=== PATIENT | male | born 1970 | race American Indian/Alaskan Native ===

== ENCOUNTER 2020-06-25 02:29 | Emergency (ER) | payer MEDICAID ==
[2020-06-25 02:37] VITALS: BP 136/69
[2020-06-25 04:21] LABS: Basophils # (Auto) 0.1 K/mm3 (0.0-0.1); Basophils % (Auto) 0.9 % (0.0-1.8); Eosinophils # (Auto) 0.1 K/mm3 (0.0-0.4); Eosinophils % (Auto) 0.7 % (0.0-4.3); Hematocrit 37.8 % (35.5-45.6); Hemoglobin 12.2 gm/dl (11.8-15.2); Lymphocytes # (Auto) 1.9 K/mm3 (1.2-5.4); Lymphocytes % (Auto) 19.1 % (13.4-35.0); Mean Corpuscular HGB Conc 32 % (32-34); Mean Corpuscular Volume 78 fl (84-94); Monocytes # (Auto) 0.6 K/mm3 (0.0-0.8); Monocytes % (Auto) 6.3 % (0.0-7.3); Platelet Count 231 K/mm3 (140-440); Red Blood Count 4.85 M/mm3 (3.65-5.03); Red Cell Distribution Width 15.4 % (13.2-15.2)
--- NOTE | 2020-06-25 04:40 | XRay Report ---
RIGHT SHOULDER 3 VIEWS INDICATION / CLINICAL INFORMATION: acute pain, no injury. COMPARISON: None available. FINDINGS: BONES/JOINT(S): No acute fracture or subluxation. Mild DJD in the AC joint and in the glenohumeral mariel int. SOFT TISSUES: No significant abnormality. ADDITIONAL FINDINGS: None. Signer Name: Shahbaz Stack MD Signed: 06/25/2020 4:36 AM Workstation Name: [id number]
--- NOTE | 2020-06-25 04:40 | XRay Report ---
CHEST 1 VIEW 06/25/2020 3:31 AM INDICATION / CLINICAL INFORMATION: Chest Pain. COMPARISON: 04/26/2018. FINDINGS: SUPPORT DEVICES: None. HEART / MEDIASTINUM: No significant abnormality. LUNGS / PLEURA: Stable mild linear scarring left lower lung. No pneumothorax. ADDITIONAL FINDINGS: No significant additional findings. IMPRESSION: 1. No acute findings. Signer Name: Shahbaz Stack MD Signed: 06/25/2020 4:36 AM Workstation Name: [id number]
[2020-06-25 04:48] LABS: Albumin 3.9 g/dL (3.9-5); Calcium 8.8 mg/dL (8.4-10.2)
--- NOTE | 2020-06-25 06:40 | Emergency Department Report ---
ED Upper Extremity Inj HPI - General Chief Complaint: Shoulder Injury Stated Complaint: PAIN IN NECK & ARM RT SIDE Time Seen by Provider: 06/25/20 06:11 Source: patient Mode of arrival: Wheelchair Limitations: Other - History of Present Illness Initial Comments: 50-year-old male, history of hypertension, COPD, diabetes, presents to ED with complaint of right neck pain radiating into the right shoulder x2 days. Patient denies any recent trauma, injury, or fall. Patient reports improvement of pain with abduction of the right arm. He denies any weakness or numbness. MD Complaint: Injury to:: right, shoulder -: days(s) (2) Other Injuries: none Improves With: other (heat therapy; abduction of right arm) Worsens With: other (rotating neck rightward) Context: other (unknown) Associated Symptoms: neck pain. denies: weakness, numbness, nausea/vomiting - Related Data Home Medications Medication Instructions Recorded Confirmed Last Taken Albuterol Mdi (or & Nicu Only) 2 puff IH QID PRN 08/20/13 03/12/20 03/05/20 [ProAir HFA Inhaler] Fluticasone Propionate [Flovent 1 puff IH BID 08/20/13 03/12/20 02/27/20 Diskus] Ibuprofen [Motrin 800 MG tab] 800 mg PO BID PRN 08/20/13 03/12/20 03/05/20 Insulin Glargine,Hum.rec.anlog 80 unit SQ QHS 08/20/13 03/11/20 Unknown [Lantus Solostar] Insulin Lispro [HumaLOG VIAL] See Protocol SQ PRN 08/20/13 03/12/20 03/10/20 AtorvaSTATin [Lipitor] 20 mg PO QHS 04/26/18 03/12/20 03/10/20 19:00 Furosemide [Lasix TAB] 40 mg PO QDAY 04/26/18 03/12/20 03/10/20 amLODIPine 5 mg PO DAILY 04/26/18 03/12/20 03/11/20 carvediloL [Carvedilol] 25 mg PO BID 04/26/18 03/12/20 03/11/20 lisinopriL [Zestril TAB] 40 mg PO QDAY 04/26/18 03/12/20 03/11/20 Insulin Glargine,Hum.rec.anlog 80 unit SQ QPM 03/11/20 03/11/20 Unknown [Basaglar Kwikpen U-100] Insulin Lispro [Admelog Solostar] 35 unit SQ TID 03/11/20 03/11/20 Unknown Previous Rx's Medication Instructions Recorded Last Taken Type methOCARBAMOL [Robaxin TAB] 500 mg PO Q8HR PRN #20 tablet 06/25/20 Unknown Rx Allergies Allergy/AdvReac Type Severity Reaction Status Date / Time No Known Allergies Allergy Verified 05/10/15 14:21 ED Review of Systems ROS: Stated complaint: PAIN IN NECK & ARM RT SIDE Other details as noted in HPI Comment: All other systems reviewed and negative Constitutional: denies: chills, fever Cardiovascular: denies: chest pain Gastrointestinal: denies: vomiting Musculoskeletal: as per HPI Neurological: denies: headache, weakness, numbness ED Past Medical Hx - Past Medical History Previous Medical History?: Yes Hx Hypertension: Yes Hx Heart Attack/AMI: No Hx Diabetes: Yes Hx Liver Disease: No Hx Renal Disease: No Hx Sickle Cell Disease: No Hx Arthritis: Yes Hx Seizures: No Hx Asthma: Yes Hx COPD: Yes Additional medical history: CHRONIC SINUS, Obesity - Surgical History Past Surgical History?: Yes Hx Pacemaker: No Hx Internal Defibrillator: No Additional Surgical History: sinus surgery - Social History Smoking Status: Former Smoker - Medications Home Medications: Home Medications Medication Instructions Recorded Confirmed Last Taken Type Albuterol Mdi (or & Nicu Only) 2 puff IH QID PRN 08/20/13 03/12/20 03/05/20 History [ProAir HFA Inhaler] Fluticasone Propionate [Flovent 1 puff IH BID 08/20/13 03/12/20 02/27/20 History Diskus] Ibuprofen [Motrin 800 MG tab] 800 mg PO BID PRN 08/20/13 03/12/20 03/05/20 History Insulin Glargine,Hum.rec.anlog 80 unit SQ QHS 08/20/13 03/11/20 Unknown History [Lantus Solostar] Insulin Lispro [HumaLOG VIAL] See Protocol SQ PRN 08/20/13 03/12/20 03/10/20 History AtorvaSTATin [Lipitor] 20 mg PO QHS 07/03/12/20 03/10/20 19:00 History Furosemide [Lasix TAB] 40 mg PO QDAY 04/26/18 03/12/20 03/10/20 History amLODIPine 5 mg PO DAILY 04/26/18 03/12/20 03/11/20 History carvediloL [Carvedilol] 25 mg PO BID 04/26/18 03/12/20 03/11/20 History lisinopriL [Zestril TAB] 40 mg PO QDAY 04/26/18 03/12/20 03/11/20 History Insulin Glargine,Hum.rec.anlog 80 unit SQ QPM 03/11/20 03/11/20 Unknown History [Basaglar Kwikpen U-100] Insulin Lispro [Admelog Solostar] 35 unit SQ TID 03/11/20 03/11/20 Unknown History methOCARBAMOL [Robaxin TAB] 500 mg PO Q8HR PRN #20 tablet 06/25/20 Unknown Rx ED Physical Exam - General Limitations: Other General appearance: alert, in no apparent distress, obese - Head Head exam: Present: atraumatic, normocephalic - Eye Eye exam: Present: normal appearance, EOMI - ENT ENT exam: Present: mucous membranes moist - Neck Neck exam: Present: normal inspection, tenderness (posterior right paraspinal), full ROM. Absent: meningismus - Respiratory Respiratory exam: Present: normal lung sounds bilaterally. Absent: respiratory distress - Cardiovascular Cardiovascular Exam: Present: regular rate, normal rhythm - GI/Abdominal GI/Abdominal exam: Present: soft. Absent: distended, tenderness - Extremities Exam Extremities exam: Present: pedal edema - Back Exam Back exam: Present: normal inspection - Neurological Exam Neurological exam: Present: alert, oriented X3. Absent: CN II-XII intact, motor sensory deficit - Psychiatric Psychiatric exam: Present: normal affect, normal mood - Skin Skin exam: Present: warm, dry, intact, normal color ED Course Vital Signs 06/25/20 02:36 Temperature 98.0 F Pulse Rate 69 Respiratory 18 Rate Blood Pressure 136/69 [Right] O2 Sat by Pulse 97 Oximetry ED Medical Decision Making - Lab Data Result diagrams: 06/25/20 04:00 06/25/20 04:00 - EKG Data -: EKG Interpreted by Me EKG shows normal: sinus rhythm, axis, intervals, QRS complexes, ST-T waves Rate: normal - EKG Data Interpretation: no acute changes - Radiology Data Radiology results: report reviewed, image reviewed - Medical Decision Making 50-year-old female presents to ED with what appears to be cervical radiculopathy. Chest x-ray or shoulder films are negative for any acute findings. Labs are drawn and show that patient has some renal insufficiency with very mild hyperkalemia of 5.3. Patient is currently on Lasix and states that his dose was recently increased from once a day to twice a day. This may be the cause of his renal insufficiency or it could be chronic. Patient will be given a dose of Kayexalate here in the ED. Patient states he is currently being seen by a relationship management lead, however patient does not remember the relationship management lead name, nor can he find her business card. Patient has been instructed to call his relationship management lead and make an appointment when he gets home. Also instructed to follow-up with his primary care physician. Return precautions given. Will discharge at this time. - Differential Diagnosis Cervical radiculopathy, arthropathy, fracture, muscle strain Critical care attestation.: If time is entered above; I have spent that time in minutes in the direct care of this critically ill patient, excluding procedure time. ED Disposition Clinical Impression: Acute cervical radiculopathy, Renal insufficiency, Hyperkalemia Disposition: DC-01 TO HOME OR SELFCARE Is pt being admited?: No Condition: Stable Instructions: Hyperkalemia (ED), Cervical Radiculopathy (ED), Impaired Kidney Function (ED) Additional Instructions: Your BUN and creatinine are 37 and 2.4 today. Please follow up with your relationship management lead (kidney specialist) immediately. Return to the ER if your condition worsens. Prescriptions: methOCARBAMOL [Robaxin TAB] 500 mg PO Q8HR PRN #20 tablet PRN Reason: Muscle Spasm Referrals: PRIMARY CARE, [Primary Care Provider] - UVALDO JEAN MD [Staff Physician] - 3-5 Days SUSY THAKUR MD [Staff Physician] - 3-5 Days Time of Disposition: 07:04
[2020-06-25] MEDS ORDERED: SODIUM POLYSTYRENE 15 GM/60 ML ORAL LIQD PO ONE (07:00)
== END 2020-06-25 07:34 | disposition home or self-care (01) ==
LOC: ED 02:29
DX: M54.12 Radiculopathy, cervical region (principal); N28.9 Disorder of kidney and ureter, unspecified; E87.5 Hyperkalemia; I10 Essential (primary) hypertension; E11.9 Type 2 diabetes mellitus without complications; M19.90 Unspecified osteoarthritis, unspecified site; J44.9 Chronic obstructive pulmonary disease, unspecified; Z87.891 Personal history of nicotine dependence; Z79.4 Long term (current) use of insulin; Z79.899 Other long term (current) drug therapy
CPT/HCPCS: 36415; 71045; 80053; 84484; 85025; 93005